=== PATIENT | male | born 1945 | race Caucasian/White ===

== ENCOUNTER 2023-01-15 21:51 | Emergency (ER) | payer OTHER, MEDICARE ==
[2023-01-15] MEDS ORDERED: SODIUM CHLORIDE 1,000 ML IV STA (22:07)
[2023-01-15] MEDS ORDERED: KETOROLAC TROMETHAMINE 30 MG/1 ML VIAL IVPUSH ONE (22:07)
[2023-01-15] MEDS ORDERED: KETOROLAC TROMETHAMINE 30 MG/1 ML VIAL ONE (22:13)
[2023-01-15 22:24] VITALS: BP 136/86; PULSE 75; RESP 16; TEMP 97.4; BMI 25.1
[2023-01-15 22:30] LABS: HEMOGLOBIN 13.9 G/dL (11.7-16.9); MCH 31.3 pg (25.7-33.7); MCHC 34.8 g/dl (32.0-35.9); MEAN CELL VOLUME 90.1 fl (80-96); MEAN PLT VOLUME 8.8 fl (7.5-11.1); PLATELET COUNT 227.2 10^3/uL (134-434); RBC 4.44 10^6/uL (4.00-5.60); WHITE BLOOD COUNT 13.3 10^3/uL (4.0-10.8)
[2023-01-15 22:44] LABS: ALBUMIN 3.8 g/dl (3.4-5.0); BILIRUBIN,TOTAL 0.9 mg/dl (0.2-1); CALCIUM 8.9 mg/dl (8.5-10); CREATININE 1.1 mg/dl (0.55-1.3)
[2023-01-15 23:02] LABS: PLATELET ESTIMATE ADEQUATE
[2023-01-16 03:40] LABS: EPI CELLS 5 /uL (0-25.1); HYALINE CASTS 1 /uL (0-3.1); URINE APPEARANCE CLOUDY; URINE BILIRUBIN NEGATIVE (NEGATIVE); URINE COLOR YELLOW; URINE GLUCOSE (UA) NEGATIVE (NEGATIVE); URINE KETONE 1+ (NEGATIVE); URINE LEUK ESTERASE 3+ (NEGATIVE); URINE NITRITE POSITIVE (NEGATIVE); URINE PROTEIN 1+ (NEGATIVE); URINE RBC 24 /uL (0-23.9); URINE UROBILINOGEN 0.2 mg/dL (0.2-1.0); URINE WBC 2382 /uL (0-25.8)
[2023-01-16 03:42] LABS: YEAST NONE SEEN (NEGATIVE)
== END 2023-01-16 00:55 | disposition home or self-care (01) ==
LOC: FER 21:51
PROC: 3E0333Z Introduction of Anti-inflammatory into Peripheral Vein, Percutaneous Approach (ICD-10-PCS; principal; 2023-01-15)
PROC: 3E0337Z Introduction of Electrolytic and Water Balance Substance into Peripheral Vein, Percutaneous Approach (ICD-10-PCS; 2023-01-15)
DX: N23 Unspecified renal colic (principal)
CPT/HCPCS: 36415; 74176-TC; 80053; 81003; 85027; 87086; 99284-25

== ENCOUNTER 2023-02-13 04:20 | Day surgery (SDC) | payer OTHER, MEDICARE ==
[2023-02-12 13:13] VITALS: BMI 25.1
[2023-02-13] MEDS ORDERED: MIDAZOLAM HCL 2 MG/2 ML SINGLE DOSE VIAL ONE (11:44)
[2023-02-13] MEDS ORDERED: LIDOCAINE HCL/PF 2% SDV 5ML VIAL ONE (11:44)
[2023-02-13] MEDS ORDERED: PROPOFOL 20 ML ONE (11:44)
[2023-02-13] MEDS ORDERED: ceFAZolin SODIUM 1 GM VIAL ONE (11:44)
[2023-02-13] MEDS ORDERED: ceFAZolin SODIUM 1 GM VIAL IVPB ONE (12:04)
[2023-02-13] MEDS ORDERED: ONDANSETRON 4 MG/2 ML VIAL ONE ×2 (12:13→13:38)
[2023-02-13] MEDS ORDERED: ONDANSETRON 4 MG/2 ML VIAL IVPUSH PRN (12:45)
[2023-02-13] MEDS ORDERED: oxyCODONE HCL 5 MG TABLET PO PRN (12:45)
[2023-02-13] MEDS ORDERED: LACTATED RINGERS SOLUTION 1,000 ML IV SCH (12:45)
[2023-02-13] MEDS ORDERED: ACETAMINOPHEN 1000 MG/100 ML BAG IVPB PRN (12:45)
[2023-02-13 13:42] VITALS: TEMP 97.8
[2023-02-13 16:36] VITALS: BP 125/80; PULSE 65; RESP 20
== END 2023-02-13 14:19 | disposition home or self-care (01) ==
LOC: JASU-SURG 04:20
PROVIDERS: ATTEND Urology
PROC: 0T778DZ Dilation of Left Ureter with Intraluminal Device, Via Natural or Artificial Opening Endoscopic (ICD-10-PCS; principal; 2023-02-13 12:00)
DX: N13.2 Hydronephrosis with renal and ureteral calculous obstruction (principal)
CPT/HCPCS: 76000-TC-FY; 82962; 94760; C1758; C1769; C2617